=== PATIENT | male | born 1970 | race Native Hawaiian/Other Pacific Islander ===

== ENCOUNTER → 2016-06-15 | Outpatient (CLI) | payer BC ==
[~2016-06-15] MED LIST: LINA2.5T5 PO; LORA10TA PO; NORC7.5T PO; PROT40TA PO; SYMB160A INH; TRIBTAB3
--- NOTE | 2016-06-25 12:37 | RSPPFT ---
DATE OF PROCEDURE: 06/15/16 COMMENTS: Spirometry shows FVC of 3.6 at 74% of predicted, FEV1 of 2.9 at 79%, FEV1/FVC ratio is normal. Flow is normal at FEF 25. Flow is mildly decreased at FEF 50 and FEF 25-75, and severely decreased at FEF 75. There is no response after bronchodilator treatment. Lung volumes show residual volume is increased. TLC is normal. Diffusion capacity is normal. Flow volume loop indicates a normal pattern. IMPRESSION: 1. Normal spirometry. 2. Mild small airways obstructive lung disease. 3. No response after bronchodilator treatment. 4. Lung volumes show hyperinflation. 5. Diffusion capacity is normal.
== END ==
LOC: HRSP 10:00
PROVIDERS: ATTEND Specialist
DX: J45.20 Mild intermittent asthma, uncomplicated (principal)
CPT/HCPCS: 94060; 94726; 94729